=== PATIENT | male | born 1995 | race Caucasian/White ===

== ENCOUNTER 2017-06-19 18:39 | Emergency (ER) | payer OTHER ==
[~2017-06-19] VITALS: Ht 182.9 cm; Wt 68.0 kg
[2017-06-19] MEDS ORDERED: NORCO 5-325 TA1 EAC1 PO (20:05)
[2017-06-19 20:37] VITALS: BP 131/70
== END 2017-06-19 20:40 | disposition home or self-care (01) ==
LOC: M.ERS 18:39
DX: S52.591A Other fractures of lower end of right radius, initial encounter for closed fracture (principal); F17.200 Nicotine dependence, unspecified, uncomplicated; W22.09XA Striking against other stationary object, initial encounter; Y93.89 Activity, other specified; Y92.89 Other specified places as the place of occurrence of the external cause; Y99.8 Other external cause status